=== PATIENT | female | born 1995 | race Caucasian/White ===

== ENCOUNTER 2025-01-29 05:10 | Inpatient (IN) | payer OTHER ==
[2025-01-29] MEDS: ELECTROLYTE-148 SOLN 500 ML IV ONE (05:45)
[2025-01-29 06:03] VITALS: BMI 27.3
[2025-01-29] MEDS ORDERED: ELECTROLYTE-148 SOLN 1,000 ML IV SCH ×2 (06:10→07:30)
[2025-01-29] MEDS: CITRIC ACID/SODIUM CITRATE 30 ML UNIT-DOSE CUP PO ONE (07:45)
[2025-01-29] MEDS ORDERED: morphine SULFATE/PF 1 MG/2 ML (2cc Syringe - QUVA) ONE (07:51)
[2025-01-29] MEDS ORDERED: FENTANYL CITRATE/PF 50 MCG/ML VIAL ONE (07:52)
[2025-01-29] MEDS ORDERED: ONDANSETRON 4 MG/2 ML VIAL ONE (07:57)
[2025-01-29] MEDS ORDERED: KETOROLAC TROMETHAMINE 30 MG/1 ML VIAL ONE (07:57)
[2025-01-29] MEDS ORDERED: OXYTOCIN 10 UNITS/ML VIAL ONE (07:57)
[2025-01-29] MEDS ORDERED: DEXAMETHASONE SOD PHOSPHATE 4 MG/1 ML VIAL ONE ×2 (07:57→08:53)
[2025-01-29] MEDS ORDERED: ceFAZolin SODIUM 1 GM VIAL ONE (07:57)
[2025-01-29] MEDS ORDERED: METOCLOPRAMIDE HCL INJECTION 10 MG/2 ML VIAL ONE (08:53)
[2025-01-29] MEDS ORDERED: OXYTOCIN 20 UNITS in 0.9% NS 20 UNIT/1,000 ML INFUS.BAG IV ONE ×2 (09:19→11:30)
[2025-01-29 09:23] LABS: CORD BASE EXCESS -0.6 mmol/L (0-2); CORD HCO3 26.1 mmHg (20-29); CORD PCO2 50.4 mmHg (30-78); CORD pH 7.332 (7.14-7.44)
[2025-01-29] MEDS ORDERED: METHYLERGONOVINE MALEATE 0.2 MG/1 ML AMP IM PRN (09:37)
[2025-01-29] MEDS ORDERED: ACETAMINOPHEN INJECTION 100 ML ONE (11:38)
[2025-01-29] MEDS: OXYTOCIN 20 UNITS in 0.9% NS 20 UNIT/1,000 ML INFUS.BAG IV SCH (11:40)
[2025-01-29] MEDS: ACETAMINOPHEN 1000 MG/100 ML BAG IVPB ONE (11:45)
[2025-01-29] MEDS: PRENATAL VITAMINS W/ FOLIC ACID TABLET (FP) PO SCH (12:15)
[2025-01-29] MEDS: FERROUS SO4 325 MG TABLET (FP) PO SCH (17:55)
[2025-01-29] MEDS: IBUPROFEN 800 MG/8 ML IJ IVPB PRN (18:01)
[2025-01-29] MEDS: SIMETHICONE 80 MG TAB.CHEW (FP) PO PRN (20:13)
[2025-01-29] MEDS: ACETAMINOPHEN 325 MG TABLET (FP) PO PRN (20:13)
[2025-01-29] MEDS: RHO(D) IMMUNE GLOBULIN 1,500 UNIT DISP.SYRIN IM ONE (20:40)
[2025-01-29] MEDS ORDERED: oxyCODONE HCL 5 MG TABLET PO PRN (21:38)
[2025-01-30 06:54] LABS: ABSOLUTE IMMATURE GRANULOCYTES 0.06 x10^3/uL (0.0-0.031); BASOPHILS # 0.03 x10^3/uL (0.01-0.08); EOSINOPHIL % 0.5 % (0.7-5.8); EOSINOPHILS # 0.05 x10^3/uL (0.04-0.36); HEMATOCRIT 34.1 % (34.1-44.9); HEMOGLOBIN 11.1 g/dL (11.2-15.7); MCHC 32.6 g/dl (32.2-35.5); MEAN CELL VOLUME 91.4 fl (79.4-94.8); MEAN PLT VOLUME 11.5 fl (9.4-12.3); MONOCYTE # 0.52 x10^3/uL (0.24-0.86); MONOCYTE % 5.4 % (4.7-12.5); PLATELET COUNT 148 x10^3/uL (182-369); RDW 13.2 % (12.1-16.5)
[2025-01-30] MEDS: IBUPROFEN 600 MG TABLET (FP) PO PRN (08:53)
[2025-01-30] MEDS ORDERED: BISACODYL 10 MG SUPP.RECT RC PRN (09:38)
[2025-01-30] MEDS: oxyCODONE HCL 5 MG TABLET PO PRN (12:50)
[2025-01-30 22:46] VITALS: PULSE 65
[2025-01-31 10:17] VITALS: BP 118/85; RESP 17; TEMP 98.4
== END 2025-01-31 14:40 | disposition home or self-care (01) | DRG 540 ==
LOC: JLDR 05:10 → J3W 12:05
PROVIDERS: ADMIT Obstetrics & Gynecology; ATTEND Obstetrics & Gynecology
PROC: 10D00Z1 Extraction of Products of Conception, Low, Open Approach (ICD-10-PCS; principal; 2025-01-29)
DX: O34.211 Maternal care for low transverse scar from previous cesarean delivery (principal); Z3A.39 39 weeks gestation of pregnancy; Z37.0 Single live birth
CPT/HCPCS: 36415; 36600; 59409; 82803; 85025; 85461; 88307-TC; 96372; J0131; J2790